=== PATIENT | female | born 1995 | race Two or more races ===

== ENCOUNTER 2024-08-17 07:40 | Day surgery (SDC) | payer MEDICAID, SELFPAY ==
[2024-08-16 07:29] VITALS: BMI 26.2
[2024-08-16 08:57] LABS: Basophils % (Auto) 1 % (0-2.5); Eosinophils # (Auto) 0.2 Thou/mm3 (0.0-0.5); Eosinophils % (Auto) 3 % (0-10); Hematocrit 32.9 % (36.0-46.0); Hemoglobin 11.4 g/dL (12.0-16.0); Immature Granulocytes % (Auto) 0 % (0-0); Immature Granulocytes Auto 0.01 Thou/mm3 (0.00-0.00); Lymphocytes # (Auto) 2.1 Thou/mm3 (1.0-4.8); Lymphocytes % (Auto) 37 % (10-50); Mean Corpuscular HGB Conc 34.7 g/dl (31.0-37.0); Mean Corpuscular Hemoglobin 30.7 pg (25.0-35.0); Mean Corpuscular Volume 89 fL (80-100); Monocytes # (Auto) 0.4 Thou/mm3 (0.0-0.8); Monocytes % (Auto) 7 % (0-12); Neutrophils # (Auto) 2.9 Thou/mm3 (1.8-7.7); Neutrophils % (Auto) 52 % (37-80); Nucleated Red Blood Cell % 0 /100 WBC (0); Platelet Count 281 Thou/mm3 (140-440); Red Blood Count 3.71 Miln/mm3 (4.00-5.20); White Blood Count 5.6 Thou/mm3 (3.6-11.0)
[2024-08-16 09:11] LABS: Anion Gap 10 (7-16); BUN/Creatinine Ratio 17 Ratio (12-20); Blood Urea Nitrogen 12 mg/dL (9-23); Calcium 8.8 mg/dL (8.3-10.6); Carbon Dioxide 26.6 mMol/L (20.0-31.0); Chloride 106 mMol/L (98-107); Creatinine (Component) 0.7 mg/dL (0.6-1.3); Estimated Creatinine Clearance 103.2 mL/min (>60); Glucose 98 mg/dL (74-106); Osmolality,Calculated 284 (275-295); Sodium 143 mMol/L (136-145); eGFR > 60 See Note
[2024-08-16 09:24] LABS: HCG Qualitative,Urine Negative
[2024-08-17] VITALS (7 sets, daily range): BP systolic 108–125; BP diastolic 72–81; PULSE 66–99; RESP 16–20; TEMP 36.2–36.4; O2SAT 95–100; BMI 26.4
--- NOTE | 2024-08-17 08:56 | SUR.PREOP ---
Patient expressed gratitude for prayer before their procedure.
--- NOTE | 2024-08-17 10:53 | ESOP_ITS ---
Date of Procedure 08/17/24 Pre Op Diagnosis 1. Torn medial meniscus right knee joint 2. 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 Partial medial meniscectomy 2 partial lateral meniscectomy 3 chondroplasty 4 partial synovectomy including excision plica Findings Refer dictation Procedure Description The patient was given general endotracheal anesthesia. Once satisfactory anesthesia was achieved, tourniquet was placed on right upper thigh. Following that the part was thoroughly prepped and draped. After using Esmarch the tourniquet pressure was raised to 350 mmHg. A skin incision was made proximal to lateral tibial plateau and arthroscope was introduced in the usual fashion. Another a skin incision was made in suprapatellar pouch area and outlet was established. The findings were noted as below. In suprapatellar pouch area significant synovial tissue inflammation was present. Medial plica was present as well. The undersurface of patella showed grade 2/3 chondromalacia. The anterior femoral condyle showed grade 2 chondromalacia. Soft tissue impingement was present. The patellar tracking was checked and found to be good. The medial compartment showed grade 2 chondromalacia for medial tibial plateau and medial femoral condyle. The medial meniscus showed degeneration and minor tear and tear of the anterior horn. Another skin incision was made proximal to medial tibial plateau and a probe was introduced and findings were confirmed. The anterior cruciate ligament was intact. The anterior drawer test was performed and found to be good. With the help of probe the ACL was tested and found to be good. The lateral compartment showed intact lateral femoral condyle and tibial plateau. Lateral meniscus showed degeneration of the body and anterior horn. A shaver was introduced and shaving of the anterior horn of medial meniscus was performed. Soft tissue impingement was shaved off. The shaving of the body and anterior horn of lateral meniscus was done. The chondroplasty of the patella and and anterior femoral condyle was performed. The soft tissue impingement was shaved off. A partial synovectomy including excision of plica was performed. Copious amount of irrigation was used to irrigate the knee joint. All the debris were removed. 3-0 Prolene was used to close the wound. About 20 mL of quarter percent Marcaine along with 10 mg of Duramorph was injected. Patient tolerated procedure well. Estimated blood loss was about 5 mL. Prognosis in this case is fair to good. Patient was taken to the recovery room in good condition. Anesthesia GETA Pathology / specimen None Estimated Blood Loss 1 Surgeon Braxton Herrera MD Surgical Staff Operation Date: 08/17/24 09:30 Case Staff WAREHOUSE MANAGER: Daryl Montana
--- NOTE | 2024-08-17 10:59 | SUR.PHASEI ---
pt received from OR in recovery bay 5. pt asleep but responds to voice, breathing unlabored on room air. v/s stable. pt dressing to right lower extremity cdi. report received from Aaron JIMENEZ and Param GUILLERMO.
--- NOTE | 2024-08-17 11:12 | SUR.PHASEI ---
pt resting with eyes closed, breathing unlabored, dressing to right knee clean, dry, and intact, report from Jaylan JIMENEZ
[2024-08-17] MEDS: fentaNYL CIT INJ 50 mCg/ML AMP 2ML IVP (11:22)
--- NOTE | 2024-08-17 11:28 | SUR.PHASEI ---
pt tolerating ice chips without difficulty swallowing or n/v
--- NOTE | 2024-08-17 11:46 | SUR.PHASEII ---
report to Jaylan JIMENEZ
--- NOTE | 2024-08-17 12:19 | SUR.PHASEII ---
pt awake and alert, breathing unlabored on room air. v/s stable. pt dressing to right lower extremity cdi. pt able to transfer to wheelchair. d/c instructions given with Josue in room, all questions answered. pt d/c via wheelchair with all belongings.
== END 2024-08-17 12:19 | disposition home or self-care (01) ==
PROVIDERS: Anesthesiology; PCP Family Medicine; Referring Provider Orthopaedic Surgery; Visit Provider Orthopaedic Surgery
PROC: (CPT 29870; principal; 2024-08-17 09:30)
DX: S83.241A Other tear of medial meniscus, current injury, right knee, initial encounter (principal); M65.90 Unspecified synovitis and tenosynovitis, unspecified site; M17.11 Unilateral primary osteoarthritis, right knee; S83.281A Other tear of lateral meniscus, current injury, right knee, initial encounter
CPT/HCPCS: 29875; 29880; 36415; 80048; 81025; 85025; A4217; A4649; J0131; J1100; J1885; J2250; J2270; J2405; J2704; J3010; J3490; J0665